=== PATIENT | male | born 1945 | race Caucasian/White ===

== ENCOUNTER → 2018-01-01 | Outpatient (CLI) | payer MEDICARE, OTHER ==
[~2018-01-01] MED LIST: ALLOPURINOL 10100 M1 PO; CRESTOR10 MG PO; DIOVAN 80 MG TA80 M1 PO; FLEXERIL PO; KEFLEX500 MG PO; METFORMIN HCL500 M1 PO; MOBIC15 MG PO; NORCO 10-325 T1 EACH PO; NORCO 5-325 TA1 EAC1 PO; NORVASC10 MG PO; PRAVACHOL40 MG PO; PREDNISONE 20 M20 M1 PO; SOMA350 MG PO; SYNTHROID50 MCG PO; ZANAFLEX4 MG PO
--- NOTE | 2018-01-02 09:37 | PAINCON ---
[facility] [address] [place] [address] PAIN MANAGEMENT CONSULTATION Name: ANAI HURST CLARE Room: [facility] Collette.#: [id number] Admission: 01/01/18 Attend Phys: Sabrina Carlton Discharge: Date of : 49 Report #: [id number] THIS REPORT FOR: //name// CC: Murali Robbins The patient is a very pleasant 72-year-old gentleman seen in consultation at the request of Dr. Hendricks for evaluation of pain primarily neck, right side with radiation into the arms. Notes has paresthesia in the arms, left greater than right. Again neck pain right greater than left. Notes symptoms have been present for greater than 2 years. It has gotten worse in the past 6-8 weeks without antecedent trauma or overuse. States that Advil helps some though concerningly takes this concurrently with Meloxicam. Describes steady, shooting pain, he rates anywhere from 5 to 10 on a visual analog scale. REVIEW OF SYSTEMS: Complete review of systems attached to the chart and gone over with the patient. He is . He does not smoke or drink alcohol to excess. History of diabetes, hypertension, gastroesophageal reflux and hypothyroidism. Medication includes levothyroxine, pravastatin, metformin, allopurinol for gout, valsartan, amlodipine and Meloxicam. Again, the patient was cautioned to take only Meloxicam or Aleve, but not the two together. Remaining review of systems is noncontributory. Surgical history notes colon resection in 2016 for what sounds like a small-bowel obstruction. Prior hip replacement in 2015. Otherwise, has enjoyed reasonably good health. Remaining review of systems is noncontributory. Pain impact score is a 35/70. PHYSICAL EXAMINATION: Reveals 5 feet 8 inches, 190 pounds gentleman, BMI is 29 kilograms per meter squared. Blood pressure 116/77, pulse 100 and respirations 16. Cervical range of motion is limited. He has enlarged thyroid. Tenderness over the right cervical facets. Cervical extension is limited with pain, does cause modest positive Lhermitte. Upper extremity strength is symmetric. Hand grasp is symmetric. Tinel's is negative. Biceps, triceps, brachioradialis reflexes are symmetric. Heart is regular and rhythmical without murmur. Lungs are clear to auscultation. Abdomen is benign. Gait is tandem. Skin integument is intact. DIAGNOSTIC STUDIES: Include x-ray of the cervical spine from 10/12/2012 noting moderate DJD throughout the cervical spine. MRI from 12/11/2017, notes C3-C4 to have moderate to severe degenerative disk height with foraminal narrowing and facet hypertrophy. Similarly, C4-C5 and C5-C6 note moderate degenerative disk height and spondylitic changes. C6-C7 notes moderate to severe degenerative disk height with a diffuse disk bulge approximating the spinal canal. ASSESSMENT: [place] [address] PAIN MANAGEMENT CONSULTATION Name: ANAI HURST Room: [facility] Klaus#: [id number] Admission: 01/01/18 Attend Phys: Sabrina Carlton Discharge: Date of : 49 Report #: [id number] 1. Symptomatic cervical radiculopathy. 2. Cervical spondylosis without myelopathy. RECOMMENDATION: Discussed with the patient today about therapeutic option. 1. Cervical epidural injection under fluoroscopy today. 2. Follow up in 2 weeks for reevaluation. Consider right cervical facets x 4, (C2-C3, 3-4, 4-5 and 5-6) if no significant improvement of neck pain with the intervention today. Thanks for allowing me to participate in the patient's care. I will keep you abreast of his progress. PROCEDURE: Cervical epidural steroid injection under fluoroscopy. PROCEDURE NOTE: After written and informed consent was obtained including risk of dural puncture, spinal cord trauma, paralysis and increased pain, the patient was taken to the fluoroscopy suite and placed in the prone position, with appropriate abdominal bolstering, neck was flexed, palms under the thighs. Skin was prepped with ChloraPrep. Sterile draping was applied. Skin wheal with 1% Xylocaine was raised. A 22-gauge 3-1/2 inch epidural Tuohy needle was placed via a midline approach at the C7-T1 interspace, advanced under biplanar fluoroscopy using continuous loss of resistance. With appropriate loss of resistance at the expected depth on lateral view, the glass loss of resistance syringe was disconnected. A low volume extension tubing was connected to the needle and a 5 mL syringe. Negative aspiration for cerebrospinal fluid or blood was noted. A 1 mL of Omnipaque was injected which showed spread within the epidural space on biplanar fluoroscopy. This was followed with 80 mg of triamcinolone plus 1 mL of 1.5% preservative Xylocaine. Needle was withdrawn to the interspinous ligament, 0.5 mL of Xylocaine was used to flush the needle. The needle was then completely withdrawn. The area was cleansed. Band-Aid was applied. The patient was allowed to move off the procedure table and ambulated to the recovery room, monitored for an appropriate period of time, discharged in good and stable condition. <ELECTRONICALLY SIGNED> By: Jeff Robbins DO 01/02/18 [id number] [id number] Robbins DO /tien
== END | disposition home or self-care (01) ==
LOC: M.PC 04:40
DX: M54.12 Radiculopathy, cervical region (principal); M47.892 Other spondylosis, cervical region; I10 Essential (primary) hypertension; E11.9 Type 2 diabetes mellitus without complications; E03.9 Hypothyroidism, unspecified; K21.9 Gastro-esophageal reflux disease without esophagitis; Z79.899 Other long term (current) drug therapy; Z98.0 Intestinal bypass and anastomosis status; Z98.890 Other specified postprocedural states; Z79.891 Long term (current) use of opiate analgesic

== ENCOUNTER → 2018-01-15 | Outpatient (CLI) | payer MEDICARE, OTHER ==
--- NOTE | 2018-01-20 06:53 | PAINCON ---
[facility] [address] [place] [address] PAIN MANAGEMENT CONSULTATION Name: ANAI HURST Room: [facility] Klaus#: [id number] Admission: 01/15/18 Attend Phys: Sabrina Carlton Discharge: Date of : 49 Report #: [id number] THIS REPORT FOR: //name// CC: Murali Robbins DATE OF SERVICE: 01/15/2018 PAIN CLINIC NOTE HISTORY OF PRESENT ILLNESS: The patient is a very pleasant 72-year-old gentleman prior seen in the pain clinic on 01/01/2018 given cervical epidural injection for ongoing cervical radicular pain as a component of cervical spondylosis. He notes 50% overall improvement, still has pain primarily in the right neck. Notes occasionally neck feels "stiff" and "locks up." PHYSICAL EXAMINATION: He does note positive Lhermitte's, though cervical range of motion is only modestly limited, tender over the mid cervical facets on the right. No specific splenius capitis tenderness is noted. ASSESSMENT: Symptomatic cervical radiculopathy, component of cervical spondylosis and myofascial pain. RECOMMENDATIONS: 1. We will start tizanidine 4 mg 1-2 at bedtime, taken the liberty of writing for 60 tablets with 1 refill. 2. Cervical epidural injection under fluoroscopy today. 3. Follow up in 3-4 weeks for reevaluation. Consider repeat epidural injection if indicated clinically versus right cervical facet joint injections, again depending on presentation at that time. ASSESSMENT: Symptomatic cervical radiculopathy. PROCEDURE: Cervical epidural injection under fluoroscopy. PROCEDURE NOTE: After written and informed consent was obtained including risk of dural puncture, spinal cord trauma, paralysis and increased pain, the patient was taken to the fluoroscopy suite and placed in the prone position, with appropriate abdominal bolstering, neck was flexed, palms under the thighs. Skin was prepped with ChloraPrep. Sterile draping was applied. Skin wheal with 1% Xylocaine was raised. A 22-gauge 3-1/2 inch epidural Tuohy needle was placed via a midline approach at the C7-T1 interspace, advanced under biplanar fluoroscopy using continuous loss of resistance. With appropriate loss of resistance at the expected depth on lateral view, the glass loss of resistance syringe was disconnected. A low volume extension tubing was connected to the needle and a 5 mL syringe. Negative aspiration for cerebrospinal [place] [address] PAIN MANAGEMENT CONSULTATION Name: ANAI HURST Room: [facility]#: [id number] Admission: 01/15/18 Attend Phys: Sabrina Carlton Discharge: Date of : 49 Report #: [id number] was noted. A 1 mL of Omnipaque was injected which showed spread within the epidural space on biplanar fluoroscopy. This was followed with 80 mg of triamcinolone plus 1 mL of 1.5% preservative Xylocaine. Needle was withdrawn to the interspinous ligament, 0.5 mL of Xylocaine was used to flush the needle. The needle was then completely withdrawn. The area was cleansed. Band-Aid was applied. The patient was allowed to move off the procedure table and ambulated to the recovery room, monitored for an appropriate period of time, discharged in good and stable condition. <ELECTRONICALLY SIGNED> By: Jeff Robbins DO 01/20/18 0653 [id number] Robbins DO /nt
== END | disposition home or self-care (01) ==
LOC: M.PC 01:44
DX: M47.22 Other spondylosis with radiculopathy, cervical region (principal); M79.1 Myalgia; I10 Essential (primary) hypertension; E11.9 Type 2 diabetes mellitus without complications; Z79.891 Long term (current) use of opiate analgesic; Z98.890 Other specified postprocedural states; Z79.899 Other long term (current) drug therapy; Z98.0 Intestinal bypass and anastomosis status

== ENCOUNTER → 2019-06-11 | Outpatient (CLI) | payer MEDICARE, OTHER | LOC: M.ULTRA 15:00 | DX: R22.42 Localized swelling, mass and lump, left lower limb (principal) ==